=== PATIENT | female | born 1940 | race Caucasian/White ===

== ENCOUNTER → 2019-12-07 12:48 | Outpatient (REF) | payer MEDICARE, SELFPAY ==
--- NOTE | 2019-12-07 12:55 | ECG_ITS ---
Hook-up date: 2019-12-07 13:07:00 Duration: 43:54:00 Test Indications: PALPITATIONS,TACHYCARDIA Medications: 86010 QRS complexes 2 Ventricular ectopics which represent <1 % of total QRS comp. 83 Supraventricular ectopics which represent <1 % of total QRS comp. * Paced QRS complexs which represent % of total QRS comp. VENTRICULAR ECTOPY 2 Isolated 0 Bigeminal Cycles 0 Couplets 0 Runs 0 Beats in Runs * Beats LONGEST at * BPM at :: -- * Beats FASTEST at * BPM at :: -- SUPRAVENTRICULAR ECTOPY 71 Isolated 3 Couplets 1 Runs 6 Beats in Runs 6 Beats LONGEST at 121 BPM at 05:55:37 2019-12-08 6 Beats FASTEST at 121 BPM at 05:55:37 2019-12-08 HEART RATES 49 MIN at 21:33:34 2019-12-07 69 AVG 113 MAX at 13:57:41 2019-12-07 LONGEST RR 1.2480 secs at 04:55:29 2019-12-08 S-T LEVELS Channel 1 - 128 mm at 13:07:00 2019-12-07 - 128 mm at 13:07:00 2019-12-07 Channel 2 - 128 mm at 13:07:00 2019-12-07 - 128 mm at 13:07:00 2019-12-07 Channel 3 - 128 mm at 03:22:61 -- - 128 mm at 03:22:61 Underlying rhythm is sinus; Average ventricular rate 69/min; range 49-113/min; Rare supraventricular ectopy with a very brief run; No sustained arrhythmias; Patient did not report any symptoms in the diary Referred By: Neil Estrada Overread By: FARHAT GARCIA
== END ==
LOC: HO.CARD 12:48
PROVIDERS: PCP Family Medicine; Visit Provider Family Medicine
DX: R00.2 Palpitations (principal); R00.0 Tachycardia, unspecified
CPT/HCPCS: 93226

== ENCOUNTER 2020-03-26 15:06 | Emergency (ER) | payer MEDICARE, SELFPAY ==
[2020-03-26] VITALS (12 sets, daily range): BP systolic 128–206; BP diastolic 71–99; PULSE 85–99; RESP 18–28; TEMP -17.7–37.3; O2SAT 92–97; BMI 21.8
--- NOTE | 2020-03-26 15:32 | ED.FALL ---
HPI - Fall General Chief Complaint: Fall Stated Complaint: fall Time Seen by Provider: 03/26/20 15:20 Source: patient and EMS Mode of arrival: EMS History of Present Illness HPI Narrative: 79-year-old female with a past medical history of COPD, BIBA after son found patient sitting on the floor in front of her recliner this morning. Reportedly patients breakfast was on table uneaten. Patient unable to supply history, per son has been more forgetful lately. Patient does not remember event, however denies pain, states she was unable to get off ground. Patient lives at home alone. Denies recent illness, CP/SOB, headache, lightheadedness/dizziness, nausea/vomiting MD complaint: fall Onset (ago): hour(s) Related Data Home Medications Medication Instructions Recorded Confirmed budesonide-formoterol [Symbicort] 2 puff PO BID 03/26/20 03/26/20 diltiazem HCl 1 tab PO BID 03/26/20 03/26/20 losartan 1 tab PO DAILY 03/26/20 03/26/20 sertraline 1 tab PO DAILY 03/26/20 03/26/20 Previous Rx's Medication Instructions Recorded pravastatin 20 mg tablet 20 mg PO DAILY 90 Days #90 tab 03/21/20 Allergies Allergy/AdvReac Type Severity Reaction Status Date / Time Sulfa (Sulfonamide Allergy Unknown unknown Verified 10/24/19 00:00 Antibiotics) No Known Allergies Allergy Unverified 11/17/19 14:47 [No Known Allergies*] Avelox Allergy Unknown mouth Uncoded 10/24/19 00:00 swelling Review of Systems Review of Systems: Constitutional: No Fever, No Chills, No Night Sweats, No Fatigue, No Malaise ENT/Mouth: No Nasal Congestion, No Sinus Pain, No Hoarseness, No sore throat Cardiovascular: No Chest Pain, No SOB, No Edema Respiratory: No Cough, No Sputum Gastrointestinal: No Nausea, No Vomiting, No Diarrhea, No Constipation, No Abdominal pain Genitourinary: No Dysuria, No Hematuria Musculoskeletal: No joint pain, No Myalgias, No Joint Swelling Skin: No Skin Lesions, No rash Neuro: No Weakness, No Loss of Consciousness, No Dizziness, No Headache Yes all other systems are reviewed and are negative [facility] Past Medical History Attestation statement: The following information was validated with the patient. Social History Social History Alcohol intake: never Smoking Status: Former smoker Use of substances other than those prescribed or required for medical reasons: No Advance Directives: No Advance Directives Information Provided: Yes Physical Exam Vital Signs: Vital Signs: Last Vital Signs Temp 97.7 F 03/26/20 15:16 Pulse 90 03/26/20 16:50 Resp 18 03/26/20 16:50 BP 172/84 H 03/26/20 16:50 Pulse Ox 95 03/26/20 16:50 Body Mass Index 21.8 Const: General: cooperative, healthy appearing, comfortable and no acute distress Orientation/consciousness: oriented to person and oriented to place Limitations: no limitations HENMT: Head: Yes normal to inspection Ears: hearing grossly normal bilaterally General nose exam: Normal external nose present Face and sinus: Yes normal facial exam Throat: Yes posterior oropharynx normal, Yes tonsils normal and Yes uvula midline Eyes: General: appearance normal, both eyes and all related structures Pupils: Equal, round and reactive pupils present EOM: EOMs intact bilaterally Neck: Neck: Yes normal visual inspection and Yes no meningeal signs Resp: Effort & Inspection: normal respiratory effort Auscultation: clear to auscultation bilaterally, no rales, no rhonchi and no wheezes Cardio: Rate: regular rate Heart sounds: S1 normal heart sound present and S2 normal heart sound present GI: Inspection: Yes normal to inspection Palpation (GI): Soft to palpation, nontender, no guarding and not rigid Skin: Rashes: no rashes Wounds: no wounds Neuro: Other: A&O x2. Decreased strength/ROM to RUE secondary to rotator cuff injury (old per patient) General: oriented to person, oriented to place, tone normal, moves all extremities, no meningeal signs, no focal motor deficits and CN's II-XI intact bilaterally Cranial nerves: Yes Equal, round and reactive pupils present Motor exam (neuro): Pronator motor function not present Coordination: [id number] test normal Extrem: General: Yes normal to inspection Course Course Course Narrative: Mild leukocytosis of 13 XR chest 1V IMPRESSION: No acute intrathoracic disease. CK mildly elevated at 213. Troponin elevated 17.3. Will obtain 3 hour repeat. Patient denies chest pain at present. EKG without STEMI/ischemic changes. I spoke to patient's son Dmitriy [phone], reports patient does have baseline mild dementia, seemed okay yesterday, today was more confused than normal. Patient was found on ground at about 2:00pm suspected that she was sitting there since around 9-930 this morning. Discussed with Dmitriy PT/CM evaluation for STR or home VNA which both he was agreeable for, does not feel safe for mother at home alone. Patient herself would like to go home -1700--ED care transferred to [facility] pending remaining labs, UA, and imaging studies. Anticipate PT/case management vs admission MDM - Fall MDM Narrative Medical decision making narrative: 79-year-old female with a past medical history of COPD, BIBA after son found patient sitting on the floor in front of her recliner this morning. On exam VSS, NAD, A&Ox2, atraumatic, no focal neuro deficits. Concern for metabolic/infectious etiology. Low concern for severe sepsis. Concern for possible subacute CVA vs ?progressing dementia. Rule out rhabdomyolysis Plan: EKG, labs, UA, CXR, head/C-spine CT, re-evaluate Lab Data Result diagrams: 03/26/20 15:38 03/26/20 15:38 Labs: Lab Results 03/26/20 03/26/20 03/26/20 Range/Units 15:38 15:38 15:38 WBC 13.0 H (4.8-10.8) X10*3/uL RBC 4.50 (4.20-5.50) X10*6/uL Hgb 13.3 (12.0-16.0) g/dl Hct 40.8 (37-47) % MCV 90.7 (80-98) fL MCH 29.6 (27.0-33.0) pg MCHC 32.6 (31.0-35.0) g/dl RDW 14.0 (11.0-16.0) % Plt Count 251 (160-400) X10*3/uL MPV 11.1 (9.4-12.3) fL Immature Gran % (Auto) 0.4 (0.0-0.4) % Neut % (Auto) 83.6 H (45-73) % Lymph % (Auto) 7.8 L (20-40) % [place] % (Auto) 7.5 (2-11) % Eos % (Auto) 0.3 (0-4) % Baso % (Auto) 0.4 (0-2) % Lymph # (Auto) 1.0 L (1.2-4.9) X10*3/uL [place] # (Auto) 1.0 (0.1-1.2) X10*3/uL Eos # (Auto) 0.0 (0.0-0.4) X10*3/uL Baso # (Auto) 0.1 (0.0-0.2) X10*3/uL Abs Immat Gran (auto) 0.05 H (0.00-0.03) X10*3/uL Absolute Neuts (auto) 10.8 H (2.0-8.3) X10*3/uL Absolute Nucleated RBC 0.000 (0.0-0.012) X10*3/uL Nucleated RBC % (auto) 0.0 (0.0-0.2) /100WBC PT (10.8-13.0) SEC INR (0.9-1.1) APTT (24.1-38.0) SEC Sodium 141 (135-145) mmol/L Potassium 4.7 (3.3-5.1) mmol/l Chloride 106 (96-108) mmol/L Carbon Dioxide 23 (22-29) mmol/L Anion Gap 17 (12-20) BUN 30 H (9-16) mg/dL Creatinine 1.02 (0.5-1.4) mg/dL Estim Creat Clear Calc 38.8 Estimated GFR 52 Random Glucose 96 (60-115) mg/dL Calcium 9.1 (8.4-10.2) mg/dL Magnesium 2.4 (1.6-2.6) mg/dL Total Bilirubin 0.8 (0.0-1.0) mg/dL Direct Bilirubin 0.3 (0.0-0.5) mg/dL AST 31 (5-31) U/L ALT 24 (0-31) U/L Alkaline Phosphatase 188 H (39-117) U/L Ammonia 18 (13-55) umol/L Total Creatine Kinase 213 H (26-140) U/L Troponin I High Sens (<3.5-17.0) ng/L Total Protein 6.6 (6.5-8.0) g/dL Albumin 4.1 (3.5-5.0) g/dL 03/26/20 03/26/20 Range/Units 15:38 15:38 WBC (4.8-10.8) X10*3/uL RBC (4.20-5.50) X10*6/uL Hgb (12.0-16.0) g/dl Hct (37-47) % MCV (80-98) fL MCH (27.0-33.0) pg MCHC (31.0-35.0) g/dl RDW (11.0-16.0) % Plt Count (160-400) X10*3/uL MPV (9.4-12.3) fL Immature Gran % (Auto) (0.0-0.4) % Neut % (Auto) (45-73) % Lymph % (Auto) (20-40) % [place] % (Auto) (2-11) % Eos % (Auto) (0-4) % Baso % (Auto) (0-2) % Lymph # (Auto) (1.2-4.9) X10*3/uL [place] # (Auto) (0.1-1.2) X10*3/uL Eos # (Auto) (0.0-0.4) X10*3/uL Baso # (Auto) (0.0-0.2) X10*3/uL Abs Immat Gran (auto) (0.00-0.03) X10*3/uL Absolute Neuts (auto) (2.0-8.3) X10*3/uL Absolute Nucleated RBC (0.0-0.012) X10*3/uL Nucleated RBC % (auto) (0.0-0.2) /100WBC PT 11.0 (10.8-13.0) SEC INR 0.9 (0.9-1.1) APTT 30.7 (24.1-38.0) SEC Sodium (135-145) mmol/L Potassium (3.3-5.1) mmol/l Chloride (96-108) mmol/L Carbon Dioxide (22-29) mmol/L Anion Gap (12-20) BUN (9-16) mg/dL Creatinine (0.5-1.4) mg/dL Estim Creat Clear Calc Estimated GFR Random Glucose (60-115) mg/dL Calcium (8.4-10.2) mg/dL Magnesium (1.6-2.6) mg/dL Total Bilirubin (0.0-1.0) mg/dL Direct Bilirubin (0.0-0.5) mg/dL AST (5-31) U/L ALT (0-31) U/L Alkaline Phosphatase (39-117) U/L Ammonia (13-55) umol/L Total Creatine Kinase (26-140) U/L Troponin I High Sens 17.3 H (<3.5-17.0) ng/L Total Protein (6.5-8.0) g/dL Albumin (3.5-5.0) g/dL Discharge Plan Discharge Prescriptions: No [facility] pravastatin 20 mg tablet 20 mg PO DAILY 90 Days Qty: 90 RF: 3 losartan 50 mg tablet 1 tab PO DAILY RF: 0 sertraline 25 mg tablet 1 tab PO DAILY RF: 0 diltiazem HCl 30 mg tablet 1 tab PO BID RF: 0 budesonide-formoterol [Symbicort] 160-4.5 mcg/actuation HFA aerosol inhaler 2 puff PO BID RF: 0
--- NOTE | 2020-03-26 15:33 | CT_ITS ---
EXAMINATION: CT HEAD WITHOUT CONTRAST CLINICAL INFORMATION: Fall, forgetful COMPARISON: CT had noncontrast 10/14/2017 TECHNIQUE: Contiguous axial imaging was performed from the skull base to vertex without intravenous administration of contrast. Additional 2-D coronal and sagittal reformatted images are generated on the CT workstation and uploaded to PACS. This CT examination was performed using dose optimization techniques as appropriate, variously including the following: *Automated exposure control *Adjustment of mA and/or kV according to patient size (this includes techniques or standardized protocols for targeted exams where dose is matched to indication/reason for exam; i.e. extremities or head) *Use of iterative reconstruction technique DLP: 678 mGy-cm FINDINGS: There is no intracranial hemorrhage, hematoma, or extra-axial fluid collection. There are mild atrophic changes with prominence of the cortical sulci and fissures and cisterns. There is no hydrocephalus or mass effect or midline shift. Bulky falx calcification again seen. There is moderate periventricular white matter gliosis consistent with chronic small vessel ischemic changes similar to prior study. There is no visible acute territorial infarct or mass lesion. The calvarium appears intact. There is no pneumocephalus or orbital emphysema. The visualized sinuses and middle ears and mastoid air cells show no significant mucosal thickening. There are no air-fluid levels. Osteoarthritic changes bilateral TMJ. CT/CT head/brain wo con IMPRESSION: No acute intracranial abnormality.
--- NOTE | 2020-03-26 15:33 | ECG_ITS ---
Test Reason : FALL Blood Pressure : / mmHG Vent. Rate : 086 BPM Atrial Rate : 086 BPM P-R Int : 162 ms QRS Dur : 080 ms QT Int : 396 ms P-R-T Axes : 040 -06 058 degrees QTc Int : 473 ms Normal sinus rhythm Inferior infarct (cited on or before 10-FEB-2009) Cannot rule out Anterior infarct , age undetermined Abnormal ECG When compared with ECG of 27-NOV-2018 10:00, Minimal criteria for Anterior infarct are now Present Referred By: Arabella Ray Electronically Signed By:Jeff Benavides
--- NOTE | 2020-03-26 15:33 | XR_ITS ---
EXAMINATION: XR CHEST CLINICAL INFORMATION: Fall, forgetful. COMPARISON: Portable chest 11/27/2018, 11/14/2017 TECHNIQUE: Portable upright AP view of the chest was obtained. FINDINGS: There is chronic bilateral apical streaky scarring and bilateral apical nodular opacities similar to prior studies. Hyperinflation again noted. No pneumothorax, pleural reaction, airspace consolidation, or effusion. The heart is normal in size. The hilar and mediastinal contours are normal. Old healed fracture again suspected upper left lateral rib. There are changes of chronic rotator cuff degeneration right shoulder. XR/XR chest 1V IMPRESSION: No acute intrathoracic disease.
--- NOTE | 2020-03-26 15:41 | CT_ITS ---
CT CERVICAL SPINE WITHOUT CONTRAST CLINICAL INFORMATION: Question fall. COMPARISON: None available. TECHNIQUE: A multidetector CT acquisition of the cervical spine is obtained without contrast. Multiplanar reformats are acquired and utilized for image interpretation. This CT examination was performed using dose optimization techniques as appropriate, variously including the following: *Automated exposure control *Adjustment of mA and/or kV according to patient size (this includes techniques or standardized protocols for targeted exams where dose is matched to indication/reason for exam; i.e. extremities or head) *Use of iterative reconstruction technique FINDINGS: There are no acute fractures and there are no acute subluxations. 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 Severe posterior disc volume loss at C3-C4. The craniocervical junction is unremarkable. There is no prevertebral soft tissue swelling. Large spiculated nodule partially imaged within the superior segment of the right lower lobe is similar to the April [address] study[address] Only partially imaged. A few discrete nodules within the right and left upper lobes more superiorly appear increased in size when compared to the prior chest CT. Consider PET CT for further assessment as underlying malignancy is not excluded. There is extensive bilateral emphysema. CT/CT cervical spine wo con IMPRESSION: No acute osseous findings within the cervical spine Large spiculated nodule partially imaged within the superior segment of the right lower lobe is similar to the April [address] study however it is only partially imaged. A few discrete nodules within the right and left upper lobes more superiorly appear increased in size when compared to the prior chest CT. Consider PET CT for further assessment as underlying malignancy is not excluded. There is extensive bilateral emphysema.
[2020-03-26 16:05] LABS: INTERNATIONAL NORM RATIO 0.9 (0.9-1.1)
[2020-03-26 16:07] LABS: Partial Thromboplastin Time 30.7 SEC (24.1-38.0)
[2020-03-26 16:09] LABS: Basophils Absolute Auto 0.1 X10*3/uL (0.0-0.2); Basophils Percent Auto 0.4 % (0-2); Eosinophils Percent Auto 0.3 % (0-4); Hematocrit 40.8 % (37-47); Hemoglobin 13.3 g/dl (12.0-16.0); Imm Gran Abs Auto 0.05 X10*3/uL (0.00-0.03); Imm Gran Pct Auto 0.4 % (0.0-0.4); Lymphocytes Percent Auto 7.8 % (20-40); MANUAL DIFF FLAG NO; Mean Corpuscular HGB Conc 32.6 g/dl (31.0-35.0); Mean Corpuscular Hemoglobin 29.6 pg (27.0-33.0); Mean Corpuscular Volume 90.7 fL (80-98); Mean Platelet Volume 11.1 fL (9.4-12.3); Monocytes Percent Auto 7.5 % (2-11); Neutrophils Absolute Auto 10.8 X10*3/uL (2.0-8.3); Neutrophils Percent Auto 83.6 % (45-73); Platelet Count 251 X10*3/uL (160-400)
[2020-03-26 16:29] LABS: Ammonia 18 umol/L (13-55)
[2020-03-26 16:50] LABS: Alanine Aminotransferase 24 U/L (0-31); Albumin Level 4.1 g/dL (3.5-5.0); Alkaline Phosphatase 188 U/L (39-117); Anion Gap 17 (12-20); Aspartate Amino Transferase 31 U/L (5-31); Bilirubin Direct 0.3 mg/dL (0.0-0.5); Bilirubin Total 0.8 mg/dL (0.0-1.0); Blood Urea Nitrogen 30 mg/dL (9-16); Calcium 9.1 mg/dL (8.4-10.2); Carbon Dioxide 23 mmol/L (22-29); Chloride 106 mmol/L (96-108); Creatinine Clr Calc Pharmacy 38.8; Estimated Glomerular Filt Rate 52; Glucose Random 96 mg/dL (60-115); Magnesium 2.4 mg/dL (1.6-2.6); Potassium 4.7 mmol/l (3.3-5.1); Sodium 141 mmol/L (135-145); Total Protein 6.6 g/dL (6.5-8.0)
[2020-03-26 16:53] LABS: Troponin-I High Sensitivity 17.3 ng/L (<3.5-17.0)
[2020-03-26] MEDS: 0.9 % Sodium Chloride 1,000 ML 999 ML IVCONT (17:09)
[2020-03-26 17:14] LABS: Lipase 22 U/L (8-78)
[2020-03-26 17:47] LABS: Glucose Urine UA NEG (NEG); Leukocyte Esterase Urine 3+ (NEG); Nitrite Urine POS (NEG); UACC Culture Trigger YES; Urine Blood 1+ (NEG); Urine Ketones 15 MG/DL (NEG); Urine Protein TRACE MG/DL (NEG-TRACE)
[2020-03-26 18:01] LABS: COVID-19 Test Negative (Negative)
[2020-03-26 18:08] LABS: Appearance Urine CLOUDY; Color Urine YELLOW
[2020-03-26 18:09] LABS: Bacteria Urine 4+ /LPF; RBC Urine 0-2 /HPF (0); Squamous Epithelial Cell Urine TRACE /LPF; WBC Clumps Urine NOTED; WBC Urine 50-75 /HPF (0-4)
--- NOTE | 2020-03-26 19:09 | MHC.CM.ED ---
CM met with pt. Very talkative and mildly confused. Could not remember her daughter's last name or her doctor. Lives alone and feels safe. Has no home services. Spoke with son Dmitriy King, HCP ([phone]) and he has concerns about his mother living safely at home now HCP is on file. States when he got her up, she was very unsteady. Tells CM that his mother has macular degeneration and is legally blind. Dmitriy shops for his mother and provides any needed transportation. Agreeable to STR. Aware that PT evaluation will happen in the am. Requests that his mother NOT be referred to [facility]; had bad experience with family member. Would like referral to [facility] as first choice. Referral made. Will follow for d/c needs
[2020-03-26 19:15] LABS: Lactic Acid 1.3 mmol/L (0.5-2.0)
[2020-03-26 19:28] LABS: Troponin-I High Sensitivity 23.6 ng/L (<3.5-17.0)
--- NOTE | 2020-03-26 19:52 | PC.NURSE ---
DAVID DAVIS IS AWARE OF PATIENT HIGH BLOOD PRESSURE AND HIGH HEART RATE .
[2020-03-26] MEDS: cefTRIAXone sodium 1 GM in 0.9 % Sodium Chloride 50 ML IV (19:58)
--- NOTE | 2020-03-26 20:12 | PC.NURSE ---
mlp aware of bp montioring at this time.
--- NOTE | 2020-03-26 20:15 | PC.NURSE ---
patient placed on periwick for comfort. mlp aware. revitaled at this time.
[2020-03-26] MEDS: Losartan Potassium 50 MG TABLET PO (20:46)
[2020-03-26] MEDS: dilTIAZem HCL 30 MG TABLET PO (20:47)
[2020-03-27] VITALS (10 sets, daily range): BP systolic 132–170; BP diastolic 70–95; PULSE 70–93; RESP 16–25; TEMP 36.6–37.4; O2SAT 93–97
--- NOTE | 2020-03-27 07:38 | PC.NURSE ---
phys therapy has evaluated pt and recomended for rheab. pt oxygen saturation drops to 87% with pt eval. pt states she does not use home 02. pt is caox4 and is currently eating breakfast. pt is dry and denies discomfort at this time.
--- NOTE | 2020-03-27 07:55 | PC.NURSE ---
bronchial and vesicular ls are clear, pt remains in nsr sat is 96% on 2l
[2020-03-27 08:34] LABS: D Dimer 747 NG/ML
--- NOTE | 2020-03-27 08:44 | CT_ITS ---
EXAMINATION: CT ANGIOGRAM OF THE CHEST WITH AND WITHOUT CONTRAST (CT PULMONARY ANGIOGRAM FOR PE) CLINICAL INFORMATION: Reason for Exam dyspnea, elevated ddimer r/o PE COMPARISON: None TECHNIQUE: Prior to contrast administration, noncontrast localization images were obtained. Subsequently, multidetector volumetric imaging was performed from the thoracic inlet to below the diaphragms following the administration of 85 mL Omnipaque 350 intravenous contrast. No contrast reaction reported Sagittal, coronal, and MIP oblique sagittal reformatted images were obtained on the CT workstation, uploaded to PACS, and reviewed. This CT examination was performed using dose optimization techniques as appropriate, variously including the following: *Automated exposure control *Adjustment of mA and/or kV according to patient size (this includes techniques or standardized protocols for targeted exams where dose is matched to indication/reason for exam; i.e. extremities or head) *Use of iterative reconstruction technique Total exam dose-length product 184 mGy-cm FINDINGS: QUALITY OF STUDY/CONTRAST BOLUS: Satisfactory. PULMONARY ARTERIES: No central or segmental pulmonary emboli. THORACIC AORTA: No aneurysm or dissection. LUNG: There is diffuse emphysematous changes of both lungs with patchy ill-defined nodular density seen throughout both lungs most prominent in the upper lobes. The largest nodular density in the right upper lobe measures 1.6 x 1.6 cm on axial image 16/7. There is some patchy groundglass attenuation seen right lower lobe lateral basal segment and left lower lobe posterior basal segment. PLEURA: There is minimal left posterior pleural thickening. No effusion or pneumothorax seen.. MEDIASTINUM: The aorta is ectatic. There are coronary artery and aortic arch calcifications. No pericardial effusion seen. There is no abnormal size mediastinal or hilar lymph nodes. The thyroid lobes are slightly heterogeneous but symmetrical. Punctate calcification in the left lobe. No evidence of septal bowing or right heart strain. CHEST WALL/AXILLA: No axillary or internal mammary lymphadenopathy. OSSEOUS STRUCTURES: There is exaggerated thoracic kyphosis with moderate ventral spondylosis. No fracture, lytic or sclerotic process seen. All deformity of the manubrium sternum anterior cortex is noted likely old injury. UPPER ABDOMEN: Visualized liver, spleen, pancreas and bilateral adrenal glands are unremarkable. No reflux of contrast into the hepatic veins to suggest elevated right heart pressures. CT/CT angio chest PE protocol IMPRESSION: No evidence of PE. No evidence of aortic dissection or aneurysm. There are multiple ill-defined moderate sized nodules in both upper lobes largest one measuring 1.6 cm. Differential diagnosis includes metastatic nodules, less likely inflammatory nodules. There is underlying diffuse emphysema. Groundglass attenuation and the right lower lobe lateral basal segment and atelectatic changes posterior basal segment left lower lobe with minimal left posterior pleural thickening VTE: negative
[2020-03-27] MEDS: cephALEXin 500 MG CAPSULE PO ×2 (09:29→21:15)
[2020-03-27] MEDS: dilTIAZem HCL 30 MG TABLET PO ×2 (09:29→21:15)
[2020-03-27] MEDS: Losartan Potassium 50 MG TABLET PO (09:29)
[2020-03-27] MEDS: Pravastatin Sodium 20 MG TABLET PO (09:29)
[2020-03-27] MEDS: Sertraline HCL 25 MG TABLET PO (09:30)
--- NOTE | 2020-03-27 09:48 | PC.NURSE ---
d-dimer wong been drawn and is resulted, pt will have cta due to need for 02 to maint 02 sat which is not a documented baseline. pt remians in no distress.
--- NOTE | 2020-03-27 10:15 | MHC.CM.ED ---
Patient remains in ER. Physical therapy is recommending STR. [facility] does not have a bed to offer at this time. Dmitriy does not want patient going to [facility]. Referral broadcasted to all facilities within 20 [address] of patient's address that are contracted with patient's insurance. Continue to monitor for d/c needs.
[2020-03-27] MEDS: iohexoL 350 MG/ML 100 ML INFUS..BTL 85 ML IV (10:28)
--- NOTE | 2020-03-27 13:02 | MHC.CM.ED ---
Spoke with patient's son/HCP Dmitriy via telephone. SNF choices provided. Dmitriy chooses: 1)[facility] 2)[facility]'t [facility] a bed today. Waiting to hear from [facility]. Continue to monitor for d/c needs.
--- NOTE | 2020-03-27 14:12 | MHC.CM.ED ---
[facility] does not have a bed today. However, [facility] does. [facility] doesn't [facility] a bed. [facility] does. These options discussed with Dmitriy. [facility] is preferred facility. [facility] will attempt to obtain insurance auth now. Dmitriy aware patient may be here overnight. Continue to monitor for d/c needs.
--- NOTE | 2020-03-27 19:48 | MHC.CM.ED ---
CM recieved telephone call from Dmitriy, son and HCP, requesting update. Dmitriy aware that his mother will be staying overnight again. [facility] has accepted pt and we are awaiting insurance authorization. Son aware that this will happen in the am. CM continues to follow for d/c needs
[2020-03-28] VITALS (7 sets, daily range): BP systolic 129–176; BP diastolic 63–107; PULSE 72–91; RESP 17–20; TEMP 36.7–37; O2SAT 84–95
--- NOTE | 2020-03-28 04:09 | PC.NURSE ---
Pt found to have O2 sat of 89-90% on RA while at rest. Pt placed on NC 3LPM, sats maintaining at 93-94%. Pt offers no complaints of CP, SOB, pain/discomfort.
[2020-03-28] MEDS: Losartan Potassium 50 MG TABLET PO (07:59)
[2020-03-28] MEDS: cephALEXin 500 MG CAPSULE PO (07:59)
[2020-03-28] MEDS: dilTIAZem HCL 30 MG TABLET PO (08:00)
[2020-03-28] MEDS: Sertraline HCL 25 MG TABLET PO (08:00)
[2020-03-28] MEDS: Pravastatin Sodium 20 MG TABLET PO (08:08)
--- NOTE | 2020-03-28 08:21 | PC.NURSE ---
Pt given am meds, had difficulty swallowing large Keflex pill. Vomited x1 after taking med. Pt able to get up to commode with assist, no major ANGULO this am. Resting comfortably on stretcher at this time awaiting CM placement
--- NOTE | 2020-03-28 08:27 | MHC.CM.ED ---
Patient remains in ER. [facility] is in the process of obtaining insurance auth. Continue to monitor for d/c needs.
--- NOTE | 2020-03-28 11:37 | MHC.CM.ED ---
Insurance auth has been obtained by [facility]. Patient can leave at 1pm. [facility] booked. Med nec with chart. Patient, son Catarino Izaguirre RN and Natasha MCDANIELS aware. Continue to monitor for d/c needs.
== END 2020-03-28 13:19 | disposition skilled nursing facility (03) ==
PROVIDERS: Emergency Medicine; Nurse Practitioner Family; Physician Assistant; Emergency Provider Emergency Medicine Emergency Medical Services; PCP Family Medicine
DX: N39.0 Urinary tract infection, site not specified (principal); R91.8 Other nonspecific abnormal finding of lung field; Z91.81 History of falling; J44.9 Chronic obstructive pulmonary disease, unspecified
CPT/HCPCS: 36415; 70450; 71045; 71275; 72125; 80048; 80076; 81001; 81003; 82140; 82550; 83605; 83690; 83735; 84484; 85025; 85379; 85610; 85730; 87040; 87086; 87088; 87186; 87635; 93005; 97162; 99285; J0696; Q9967